=== PATIENT | female | born 1950 | race Caucasian/White ===

== ENCOUNTER 2019-06-19 10:56 | Outpatient (CLI) | payer MEDICARE | END 2019-06-19 23:59 | disposition home or self-care (01) | LOC: RAD 10:56 | PROVIDERS: ATTEND Homeopath | DX: Z45.2 Encounter for adjustment and management of vascular access device (principal); C34.90 Malignant neoplasm of unspecified part of unspecified bronchus or lung | CPT/HCPCS: 36573; C1751 ==